=== PATIENT | female | born 1990 | race Caucasian/White ===

== ENCOUNTER 2020-02-18 13:35 | Inpatient (IN) | payer OTHER, SELFPAY ==
[2020-02-18] VITALS (56 sets, daily range): BP systolic 88–122; BP diastolic 56–96; PULSE 67–188; RESP 12–19; TEMP 36.2–37.2; O2SAT 99–100; BMI 32.8
[2020-02-18] MEDS: LACTATED RINGERS 1,000 ML 125 ML IV CONT ×2 (14:30→16:42)
--- NOTE | 2020-02-18 16:06 | LDADM ---
This patient, Sara Hair, was admitted to Labor/Delivery/Recovery 120 on 02/18/20 at 13:35. Plans for labor, pain management and were discussed with patient. Patient/family oriented to hospital policies and general routines including ID bracelet, bed and alarms, visiting hours, pain management, procedures, bathroom and other care routines, personal items, smoking policy, room service/diet and guest tray routines, infant security routines, and visiting hours. Patient/Family are encouraged to report perceived risks to care and to ask questions if they do not understand what they are told or what they should do. See OBIX for further documentation.
--- NOTE | 2020-02-18 16:18 | PM.IMHP ---
H&P: HPI History of Present Illness Chief complaint: Repeat C/S Narrative: Sara Hair is a 29 year old female at 38 weeks who came in with c/o contractions. No other complaints Review of Systems Review of Systems: All systems reviewed & are unremarkable except as noted in HPI and below PMFSH Past Medical History Medical History Anxiety delivery delivered X2 Depression Smoking history Social History Social History Smoking status: Former smoker Tobacco type: cigarettes Alcohol intake: former Substance use type: does not use Meds Home Medications and Allergies Home Medications Medication Instructions Recorded Confirmed Type PNV cmb#95-ferrous fumarate-FA 1 tablet PO DAILY 02/06/20 02/18/20 History [] ferrous sulfate [Slow Fe] 142 mg PO DAILY 02/06/20 02/18/20 History Allergies Allergy/AdvReac Type Severity Reaction Status Date / Time No Known Drug Allergies Allergy Unknown n/a Verified 02/13/20 10:25 Vital Signs Vital Signs - 24 hr 02/18/20 16:01 02/18/20 16:16 Pulse Rate 75 78 Blood Pressure 119/66 122/71 Exam Const: General: comfortable and no acute distress Resp: Auscultation: clear to auscultation bilaterally Cardio: Rate: regular rate Rhythm: regular rhythm GI: GI Palp: Yes Soft to palpation and No Tenderness to palpation present (GI) : Other: Cervix 4 cm on arrival -> 4-5/90/-2 with bulging bag of water Extrem: General: no edema Psych: Mental Status: mental status grossly normal Assessment and Plan Assessment and plan (1) Previous delivery affecting : Code(s): O34.219 - Maternal care for unspecified type scar from previous delivery Status: Acute Assessment and Plan: 38 weeks in active labor with h/o two prior C sections. She had been planning for C/S throughout . She agrees to proceed with urgent C/S and signed consent after R/B/C/A discussed. She also has expressed a desire throughout her and continued desire today for sterilization so plan BTL with C/S.
--- NOTE | 2020-02-18 16:24 | PM.OP ---
Procedure Note - Brief Procedure Note - Brief Date of procedure: 02/18/20 Pre-op diagnosis: Repeat C/S Prior C/S X 2, active labor, desires sterilization Post-op diagnosis: same Procedure performed: Repeat LTCS + left tubal ligation, right salpingectomy Anesthesia: spinal Surgeon: Kendal Zambrano MD Estimated blood loss (mL): 490 Drains: Yes (Renner) Packing: No Pathology: none sent Complications: No immediate complications Condition: stable Disposition: PACU Findings: Male , cephalic, Apgars 9/9, weight 7# 12oz; normal uterus, tubes, and ovaries
[2020-02-18 16:26] LABS: Basophils Percent Auto 0.2 % (0.2-1.2); Eosinophils Percent Auto 0.1 % (0-4.4); Hematocrit 34.6 % (37.0-47.0); Hemoglobin 11.5 g/dL (12.0-15.0); Immature Granulocyte Absolute 0.09 K/mm3 (0.00-0.031); Immature Granulocyte Percent A 0.7 % (0-0.5); Lymphocytes Absolute Auto 1.54 K/mm3 (0.9-3.2); Lymphocytes Percent Auto 11.7 % (18.3-44.2); Mean Corpuscular HGB Conc 33.2 g/dl (32-36); Mean Corpuscular Hemoglobin 31.3 pg (26-34); Mean Platelet Volume 10.1 fl (7.4-10.4); Monocytes Percent Auto 7.5 % (2.6-8.5); Neutrophils Absolute Auto 10.5 K/mm3 (1.3-6.7); Neutrophils Percent Auto 79.8 % (45.5-73.1); Platelet Count Result 227 k/mm3 (150-375); Red Blood Count 3.68 M/mm3 (4.2-5.4); Red Cell Distribution Width 14.3 % (11.5-14.5); White Blood Count 13.1 K/mm3 (4.5-10.0)
[2020-02-18] MEDS: ceFAZolin 2 GM/D5W 50 ML 2 GM/50 ML BAG IVPB (16:33)
[2020-02-18] MEDS: OXYTOCIN 30 UNITS/NS 500 ML 30 UNITS/500 ML BAG 125 UNITS IV CONT (18:21)
--- NOTE | 2020-02-18 20:33 | PC.NURSE ---
1950 Pt to floor per bed accompanied by staff and baby in crib. Plan of care and floor routines explained to pt and she voices understanding.
[2020-02-18] MEDS: DEXTROSE 5%/0.45% SOD CHL 1,000 ML 125 ML IV CONT (22:27)
[2020-02-19] MEDS: IBUPROFEN 600 MG TABLET PO ×4 (00:01→22:22)
[2020-02-19 04:05] VITALS: BP 93/58; PULSE 75; RESP 12; TEMP 36.8
[2020-02-19 05:29] LABS: Basophils Percent Auto 0.1 % (0.2-1.2); Eosinophils Percent Auto 0.2 % (0-4.4); Hematocrit 30.7 % (37.0-47.0); Hemoglobin 10.2 g/dL (12.0-15.0); Immature Granulocyte Absolute 0.09 K/mm3 (0.00-0.031); Immature Granulocyte Percent A 0.6 % (0-0.5); Lymphocytes Absolute Auto 1.59 K/mm3 (0.9-3.2); Lymphocytes Percent Auto 10.9 % (18.3-44.2); Mean Corpuscular HGB Conc 33.2 g/dl (32-36); Mean Corpuscular Hemoglobin 30.9 pg (26-34); Mean Platelet Volume 9.9 fl (7.4-10.4); Monocytes Absolute Auto 1.2 K/mm3 (0.1-0.6); Monocytes Percent Auto 8.3 % (2.6-8.5); Neutrophils Absolute Auto 11.7 K/mm3 (1.3-6.7); Neutrophils Percent Auto 79.9 % (45.5-73.1); Platelet Count Result 187 k/mm3 (150-375); White Blood Count 14.7 K/mm3 (4.5-10.0)
[2020-02-19] MEDS: SIMETHICONE 80 MG TAB.CHEW PO (06:57)
[2020-02-19] MEDS: MULTIVIT/MIN/PREN/FOL AC/IRON TABLET 1 TAB PO (06:58)
[2020-02-19] MEDS: DOCUSATE SODIUM 100 MG CAPSULE PO ×2 (06:59→16:53)
[2020-02-19 07:34] LABS: Rapid Plasma Reagin Non-Reactive (NonReactive)
--- NOTE | 2020-02-19 07:43 | WPDANLDPN2 ---
Anes-Prog Note L&D Date/Time: 02/19/20 07:43 Comfortable throughout: section Neuraxial method: spinal Epidural/Spinal procedure site: clean & non-tender Neuro status: Neuro function grossly intact. Cardiovascular status: normal Respiratory status: normal Airway patency: baseline Mental status: baseline Post-Op hydration status: normal Vital Signs: Last Vital Signs Temp 36.8 C 02/19/20 04:05 Pulse 75 02/19/20 04:05 Resp 12 02/19/20 04:05 BP 93/58 L 02/19/20 04:05 Pulse Ox 100 02/18/20 19:42 Pain score (VAS): 0/10. Patient resting in bed at time of assessment, appears comfortable. No concerns at time of assessment. Support person at bedside. I/O: Intake & Output 02/18/20 02/18/20 02/19/20 15:59 23:59 07:59 Intake Total 2200 2500 Output Total 1290 2000 Balance 910 500 Post-procedural complaints: none Patient feedback: Patient satisfied with anesthetic care.
--- NOTE | 2020-02-19 07:44 | WPDANLDNPN2 ---
Anes-Prog Note L&D-Neuraxial Date/Time: 02/19/20 07:44 Neuraxial medications: intrathecal PF morphine Opiod-related complaints: none Patient feedback: Patient satisfied with post-operative pain management.
[2020-02-19 08:55] VITALS: BP 105/56; PULSE 75; RESP 18; TEMP 36.6; O2SAT 100
[2020-02-19 11:30] VITALS: BP 107/58; PULSE 76; RESP 18; TEMP 36.5; O2SAT 100
--- NOTE | 2020-02-19 11:30 | P.PNOB_ITS ---
OB - PN: Subj Subjective Date/time seen: 02/19/20 11:30 Patient comments: no complaints, pain well controlled, incisional pain, tolerating diet, flatus present and other (Lochia similar to menses) baby status: doing well OB - PN: Obj Data Labs CBC & Chem 7: 02/19/20 04:00 Labs: Laboratory Results - last 24 hr 02/18/20 02/18/20 02/18/20 16:13 16:13 16:13 WBC 13.1 H RBC 3.68 L Hgb 11.5 L Hct 34.6 L MCV 94.0 MCH 31.3 MCHC 33.2 RDW 14.3 Plt Count 227 MPV 10.1 Immature Gran % (Auto) 0.7 H Neut % (Auto) 79.8 H Lymph % (Auto) 11.7 L [place] % (Auto) 7.5 Eos % (Auto) 0.1 Baso % (Auto) 0.2 Lymph # (Auto) 1.54 [place] # (Auto) 1.0 H Eos # (Auto) 0.0 Baso # (Auto) 0.0 Abs Immat Gran (auto) 0.09 H Absolute Neuts (auto) 10.5 H Absolute Nucleated RBC 0.0 Nucleated RBC % 0.0 RPR Non-reactive Blood Type B Positive Antibody Screen Negative 02/19/20 04:00 WBC 14.7 H RBC 3.30 L Hgb 10.2 L Hct 30.7 L MCV 93.0 MCH 30.9 MCHC 33.2 RDW 14.0 Plt Count 187 MPV 9.9 Immature Gran % (Auto) 0.6 H Neut % (Auto) 79.9 H Lymph % (Auto) 10.9 L [place] % (Auto) 8.3 Eos % (Auto) 0.2 Baso % (Auto) 0.1 L Lymph # (Auto) 1.59 [place] # (Auto) 1.2 H Eos # (Auto) 0.0 Baso # (Auto) 0.0 Abs Immat Gran (auto) 0.09 H Absolute Neuts (auto) 11.7 H Absolute Nucleated RBC 0.0 Nucleated RBC % 0.0 RPR Blood Type Antibody Screen OB - PN A/P Plan day: 1 (s/p C section, doing well) Plan: routine care Time Spent With Patient Time: Total time spent is greater than 50% in coordination of care (as documented) at patient's floor/unit and/or counseling patient: Exam Const: General: no acute distress Resp: Auscultation: clear to auscultation bilaterally Cardio: Rate: regular rate Rhythm: regular rhythm GI: Inspection: non-distended, incision (Intact without erythema, drainage, or induration) and other (Fundus firm and nontender at umbilicus) GI Palp: Yes abdominal tenderness (appropriate ) and Yes Soft to palpation Extrem: General: no edema
--- NOTE | 2020-02-19 12:17 | OP_ITS ---
DATE OF PROCEDURE: 02/18/2020 PREOPERATIVE DIAGNOSES: Intrauterine at 38 weeks with history of 2 prior C-sections and desires sterilization, in active labor. POSTOPERATIVE DIAGNOSES: Intrauterine at 38 weeks with history of 2 prior C-sections and desires sterilization, in active labor. PROCEDURE PERFORMED: Repeat low transverse section, left tubal ligation, right salpingectomy. ANESTHESIA: Spinal. ESTIMATED BLOOD LOSS: 490 mL. COMPLICATIONS: None. FINDINGS: Male infant, cephalic presentation, Apgars 9 and 9. Weight 7 pounds 12 ounces. Nuchal cord x1. Thin meconium fluid. Normal uterus, tubes, and ovaries. INDICATIONS: This 29-year-old G3, P2-0-0-2 at 38 weeks gestation, came in with complaint of contractions. She was found to be renee regularly and had progressive cervical dilation, so she was in active labor. She has had a history of 2 prior C-sections and has planned to have a repeat along with tubal ligation, so she agreed to proceed with and tubal ligation urgently and signed consent after the risks, benefits, complications, and alternatives were discussed. DESCRIPTION OF PROCEDURE: For the procedure, she was taken to the operating room where spinal anesthesia was obtained and found to be adequate. She was prepared and draped in the normal sterile fashion in the dorsal supine position with a leftward tilt. A Pfannenstiel skin incision was made over her prior incision with a scalpel and extended to the underlying layer of fascia with the scalpel. The fascia was incised in the midline with a scalpel and extended laterally with Fernandez scissors. The underlying rectus muscles were dissected off bluntly and sharply and in the midline. The peritoneum was entered sharply and extended inferiorly and superiorly with good visualization of the bladder. The bladder blade was inserted. The vesicouterine peritoneum was tented up and entered sharply with the Metzenbaum scissors and the bladder flap was created sharply. The bladder blade was reinserted. The lower uterine segment was incised in a transverse fashion with the scalpel. The incision was digitally stretched in a cephalocaudad direction. The membranes were ruptured with thin meconium noted. The infant's head was delivered atraumatically. A nuchal cord, which was loose, was reduced easily. The shoulders and body were delivered easily. The cord was clamped x2 and cut while the infant was bulb suctioned on the maternal abdomen, and the baby was passed to the waiting nurse. Cord gas and cord blood were obtained. The placenta was manually extracted. The uterus was exteriorized and cleared of all clots and debris. The uterine incision was closed using 0 Vicryl in a running locked fashion. There were a couple of bleeding points along the uterus, which were controlled easily with 0 Vicryl [id number] sutures. Attention was then turned to the right fallopian tube, which was scarred along its entire length to the ovary, so lysis of adhesions was accomplished with the Metzenbaum scissors. The tube was bleeding quite a bit, so decision was made to remove it entirely, so the mesosalpinx was clamped with Smita clamps and the tube was transected and the pedicles were tied using 0 Vicryl with excellent hemostasis visualized. Attention was turned to the left side. The left fallopian tube was scarred as well but not as severely as the right side, so the fallopian tube was tented up. The mesosalpinx was punctured using the Bovie cautery. Two free ties of 0 plain gut were placed and the intervening segment of tube was then excised. Excellent hemostasis was again noticed. The uterine incision was reinspected and found to be hemostatic. The uterus was returned to the abdomen. Th
--- NOTE | 2020-02-19 13:30 | PC.NURSE ---
Consult with pt., mother verbalizes she is able to independently latch infant with appropriate positioning/alignment. She denies any nipple discomfort, is feeding as required and waking infant to feed if needed. Mother breastfed other children. Requested mother call out next feeding for observation. Reviewed infant feeding cues, frequencies, duration of feedings, feeding elimination flow sheet, and signs of adequate intake. Reviewed transition to breast milk, signs of adequate intake, and engorgement/relief. Instructed to call ICP if intake/output less than required. Reviewed regular medications mother is taking. Information provided per Es. Reviewed community resources on the [facility] website and in the Mom/Baby guide. Information on outpatient services provided. Mother has no further questions at this time.
[2020-02-19 18:50] VITALS: BP 102/67; PULSE 81; RESP 12; TEMP 36.1
[2020-02-20] MEDS: IBUPROFEN 600 MG TABLET PO (04:29)
--- NOTE | 2020-02-20 07:37 | PM.OBPNVD ---
OB - PN: Subj Subjective Date/time seen: 02/20/20 07:37 Patient comments: no complaints, pain well controlled, tolerating diet, flatus present and other (Ambulating and voiding without problems. Lochia similar to menses) baby status: doing well OB - PN: Obj Data Labs CBC & Chem 7: 02/19/20 04:00 OB - PN A/P Plan day: 2 (s/p C section, doing well) Plan: routine care and discharge home (Follow up in 1 week) Time Spent With Patient Time: Total time spent is greater than 50% in coordination of care (as documented) at patient's floor/unit and/or counseling patient: Time with patient: less than 15 minutes Exam Const: General: no acute distress Resp: Auscultation: clear to auscultation bilaterally Cardio: Rate: regular rate Rhythm: regular rhythm GI: Inspection: non-distended, incision (Intact without erythema, drainage, or induration) and other (Fundus firm and nontender below umbilicus) GI Palp: Yes abdominal tenderness (appropriate) and Yes Soft to palpation Extrem: General: no edema
--- NOTE | 2020-02-20 07:38 | PM.OBDSVD ---
DS: Admitting Diagnosis Admitting Diagnosis Admitting Diagnosis: Maternal care for unspecified type scar from previous delivery DS: Discharge Diagnosis Discharge Diagnosis (1) Previous delivery affecting : Code(s): O34.219 - Maternal care for unspecified type scar from previous delivery Status: Acute OB - DS: Summary OB Procedures : None OB Procedures Intrapartum: and Tubal ligation OB Procedures: : None Peripartum Data Infant Delivery Method: Section Procedures: Procedures Operation Date: 02/18/20 16:30 Actual Procedures Side Surgeon p Section Kendal Zambrano MD complications: none Status at Discharge Functional status at discharge: independent ambulation Overall status at discharge: patient is progressing back to baseline Time Spent with Patient Time attestation: Total time spent providing and/or coordinating discharge services: Time spent: Less than 30 minutes DS: Data Data Completed and Pending Pending studies at discharge: Pending at discharge 02/18/20 17:33 Surgical [PTH] Routine Discharge Plan Discharge Attending physician on discharge: Kendal Zambrano Discharging Clinician: Kendal Zambrano Patient Disposition: Home, Self-Care Activity: may shower and pelvic rest Diet: regular Wound Care Instructions: incision open to air Patient Instructions: Antibiotic Form Stand Alone Forms: General Discharge Information Follow-up/Referrals: Kendal Zambrano MD [Physician] - 1 Week Discharge Medications: New hydrocodone-acetaminophen 5-325 mg Tablet 1 tablet PO Q4H PRN (Reason: Moderate Pain (4-6)) Qty: 30 RF: 0 ibuprofen 600 mg Tablet 600 mg PO Q6H PRN (Reason: Cramping) Qty: 60 RF: 0 Continued Slow Fe 142 mg (45 mg iron) Tablet Extended Release 142 mg PO DAILY RF: 0 PNV cmb#95-ferrous fumarate-FA [] 28 mg iron- 800 mcg Tablet 1 tablet PO DAILY RF: 0 Date of admission: 02/18/20 13:35 Primary Care Provider: Jonatan,Vielka Beasley Admitting Provider: Kendal Zambrano Attending physician on admission: Kendal Zambrano
[2020-02-20] MEDS: MULTIVIT/MIN/PREN/FOL AC/IRON TABLET 1 TAB PO (08:29)
[2020-02-20] MEDS: DOCUSATE SODIUM 100 MG CAPSULE PO (08:29)
[2020-02-20 08:30] VITALS: BP 113/65; PULSE 75; RESP 18; TEMP 36.3; O2SAT 100
--- NOTE | 2020-02-20 09:15 | PC.NURSE ---
Observed mother is able to independently latch with appropriate positioning/alignment. She denies any nipple discomfort, is feeding as required and waking infant to feed if needed. has had at least 8 effective feedings in the past 24 hours, and is currently meeting outcomes for weight, output, jaundice and feeding frequencies. Mother states she feels confident to continue effective at home. Reviewed transition to breast milk, signs of adequate intake, and engorgement/relief. Instructed to call ICP if intake/output less than required. Reviewed regular medications mother is taking. Information provided per Es. Reviewed community resources on the [facility] website and in the Mom/Baby guide. Information on outpatient services provided. Mother has no further questions at this time.
[2020-02-22 11:19] VITALS: BP 112/71; PULSE 74; RESP 14; TEMP 36.3; O2SAT 99
== END 2020-02-20 11:11 | disposition home or self-care (01) | DRG 785 ==
LOC: ANHLDR 17:15 → ANHOB2 20:05
PROVIDERS: Admitting Provider Obstetrics & Gynecology; PCP Family Medicine; Visit Provider Obstetrics & Gynecology
DX: O34.211 Maternal care for low transverse scar from previous cesarean delivery (principal); Z30.2 Encounter for sterilization; O77.0 Labor and delivery complicated by meconium in amniotic fluid; O69.81X0 Labor and delivery complicated by cord around neck, without compression, not applicable or unspecified; Z3A.38 38 weeks gestation of pregnancy; Z37.0 Single live birth
CPT/HCPCS: 36415; 85025; 86592; 86850; 86900; 86901; 88302; A9270; J0131; J0690; J2274; J2370; J2405; J2590; J7120